=== PATIENT | female | born 1955 | race Caucasian/White ===

== ENCOUNTER 2018-11-12 23:51 | Emergency (ER) | payer BC, MEDICARE ==
[~2018-11-12] VITALS: Ht 149.9 cm; Wt 81.6 kg
[2018-11-13 01:56] VITALS: BP 148/77
== END 2018-11-13 02:14 | disposition home or self-care (01) ==
LOC: ER 23:57
DX: M54.30 Sciatica, unspecified side (principal); E11.9 Type 2 diabetes mellitus without complications; M79.7 Fibromyalgia; Z60.2 Problems related to living alone

== ENCOUNTER 2020-04-14 18:39 | Emergency (ER) | payer MEDICARE, OTHER ==
[~2020-04-14] VITALS: Ht 149.9 cm; Wt 82.1 kg
[2020-04-14 18:53] VITALS: BP 136/77
[2020-04-14] MEDS ORDERED: IBUP-1955 PO (20:22)
[2020-04-14] MEDS ORDERED: TRAM50TA2 PO (20:22)
== END 2020-04-14 20:48 | disposition home or self-care (01) ==
LOC: ER 18:47
DX: M25.511 Pain in right shoulder (principal); E11.9 Type 2 diabetes mellitus without complications; M79.7 Fibromyalgia; Z60.2 Problems related to living alone; Z79.899 Other long term (current) drug therapy
CPT/HCPCS: 73030-TC; 73060-TC